=== PATIENT | male | born 1970 ===

== ENCOUNTER 2022-08-08 08:51 | Day surgery (SDC) ==
[2022-08-08 10:03] LABS: Hematocrit 38.6 % (38-53); Hemoglobin 13.2 g/dL (13.2-16.3); Mean Corpuscular Hgb Conc 34.1 g/dL (31-36); Mean Platelet Volume 9.6 fL (7.5-11.2); Platelet Count 125 10^3/uL (150-450); Red Blood Count 4.38 10^6/uL (4.06-5.63); Red Cell Distribution Width 12.6 % (12-17); White Blood Count 3.2 10^3/uL (3.6-10.2)
[2022-08-08 10:23] LABS: Creatinine, Serum 0.53 mg/dL (0.67-1.17); Potassium 3.2 mmol/L (3.5-5.0); eGFR CKD-EPI 121.3 (>60)
[2022-08-08 10:48] LABS: Activated Partial Thrombo Time 33.9 seconds (26.0-38.0); INR 1.14 (0.88-1.18)
[2022-08-08] MEDS ORDERED: nitroGLYCERIN DRIP 25,000 MCG/250 ML BTL ONE (11:19)
[2022-08-08] MEDS ORDERED: fentaNYL 100 mcg/2 ml 50 MCG/ML VIAL ONE (11:19)
[2022-08-08] MEDS ORDERED: Heparin 2 UNITS/ML 1000 mls 3,000 ML IV ONE (11:19)
[2022-08-08] MEDS ORDERED: Heparin 1,000 UNIT/ML 10 ml (10,000 UNITS) CATHLAB/DIALYSIS ONE ×2 (11:19→12:43)
[2022-08-08] MEDS ORDERED: Iohexol 350 (CONTRAST) 100 ML PAK IV ONE (11:19)
[2022-08-08] MEDS ORDERED: Lidocaine 1% MPF 5 ML VIAL ONE (11:19)
[2022-08-08] MEDS ORDERED: Midazolam 5 mg/5 ml VIAL 1 mg/ml 5 ml VIAL (5 mg) ONE (11:19)
[2022-08-08] MEDS ORDERED: niCARdipine 0.1MG/ML IVPREMIX 20 MG/200 ML BAG IV ONE (11:20)
[2022-08-08] MEDS ORDERED: Iohexol 350 (CONTRAST) 200 ML MDV IV ONE (11:20)
[2022-08-08] MEDS ORDERED: Flumazenil 0.5 mg/5 ml 0.1 MG/ML 5 ml VIAL IV PRN (11:43)
[2022-08-08] MEDS ORDERED: Midazolam 10 mg/10 ml VIAL 1 mg/ml 10 ml VIAL (10 mg) IV SLOW PU ONE (11:43)
[2022-08-08] MEDS ORDERED: fentaNYL 100 mcg/2 ml 50 MCG/ML VIAL IV SLOW PU ONE (11:43)
[2022-08-08] MEDS ORDERED: Naloxone 0.4 mg VIAL 0.4 mg/ml 1 ml VIAL IV PUSH PRN (11:43)
[2022-08-08] MEDS ORDERED: Atropine 0.1 MG/ML 10 ml SYR (1 mg) ONE (12:44)
[2022-08-08] MEDS ORDERED: Ondansetron 4 mg VIAL 2 MG/ML 2 ml VIAL IV PRN (13:12)
[2022-08-08 14:23] LABS: Albumin 3.1 g/dL (3.2-5.2); Albumin/Globulin Ratio 1.4 (1-3); Direct Bilirubin 0.1 mg/dL (0.03-0.18); Globulin 2.2 g/dL (2-4); Indirect Bilirubin 0.5 mg/dL (0.3-1.0); Total Bilirubin 0.6 mg/dL (0.2-1.0); Total Protein 5.3 g/dL (6.4-8.9)
[2022-08-08 20:41] VITALS: BP 171/115
[2022-08-09] MEDS ORDERED: Cholecalciferol (VIT D3) 1,000 unit TAB PO SCH (09:00)
[2022-08-09] MEDS ORDERED: Aspirin EC 81 mg TAB.EC (enteric coated) PO SCH (09:00)
== END 2022-08-08 20:00 | disposition home or self-care (01) ==
LOC: CHICATH 08:51 → ICU 13:57 → INTOOBSV 13:57 → CHICATH 20:00
PROVIDERS: ATTEND Internal Medicine